=== PATIENT | male | born 1965 | race Caucasian/White ===

== ENCOUNTER 2018-04-15 21:04 | Emergency (ER) | payer BC ==
[2018-04-15 21:44] VITALS: BP 147/82
[2018-04-15] MEDS ORDERED: Lidocaine 1% with EPINEPHrine 1:100,000 20 ML MDV INFILT PRN (21:48)
--- NOTE | 2018-04-21 13:30 | EDM.PDOC ---
ED HPI GENERAL MEDICAL PROBLEM - General Chief Complaint: Laceration Stated Complaint: laceration to left hand Time Seen by Provider: 04/15/18 21:45 Source of Information: Reports: Patient History Limitations: Reports: No Limitations - History of Present Illness INITIAL COMMENTS - FREE TEXT/NARRATIVE: Sustained laceration to dorsum of L hand while skinning a deer. Onset: Today Onset Date: 04/15/18 Location: Reports: Upper Extremity, Left Left Hand Pain Score (Numeric/FACES): 5 - Related Data Allergies Allergy/AdvReac Type Severity Reaction Status Date / Time No Known Allergies Allergy Verified 04/15/18 21:44 Home Meds: Home Meds metFORMIN HCl [Metformin HCl] 1 tab PO DAILY 04/15/18 [History] Past Medical History HEENT History: Reports: None Cardiovascular History: Reports: None Respiratory History: Reports: None Other Respiratory History: Pleurisy Gastrointestinal History: Reports: None Other Gastrointestinal History: Intestinal malabsorption Genitourinary History: Reports: None [employer]PUT[employer] INVESTIGATOR History: Reports: None Musculoskeletal History: Reports: None Other Musculoskeletal History: Tib/Fib FX 1993 Neurological History: Reports: None Psychiatric History: Reports: None Endocrine/Metabolic History: Reports: Diabetes, Type II Hematologic History: Reports: None Immunologic History: Reports: None Oncologic (Cancer) History: Reports: None Dermatologic History: Reports: None - Past Surgical History Cardiovascular Surgical History: Reports: None Respiratory Surgical History: Reports: None GI Surgical History: Reports: Appendectomy Neurological Surgical History: Reports: None Musculoskeletal Surgical History: Reports: ORIF Social & Family History - Tobacco Use Smoking Status *Q: Never Smoker ED ROS GENERAL - Review of Systems Review Of Systems: See Below Constitutional: Reports: No Symptoms Musculoskeletal: Reports: Hand Pain Neurological: Reports: No Symptoms ED EXAM, GENERAL - Physical Exam Exam: See Below Exam Limited By: No Limitations General Appearance: Alert, WD/WN, No Apparent Distress Extremities: Other (approx. 5cm laceration noted to L hand. Superficial with no injury to underlying structures.) ED GENERAL MEDICAL PROCEDURES - Laceration/Wound Repair Hand Lac/wound length in cm: 5 Appearance: Superficial, Mildly Contaminated Distal NVT: Neuro & Vascular Intact, No Tendon Injury Anesthetic Type: Local Local Anesthesia - Lidocaine (Xylocaine): 1% Plain Local Anesthetic Volume: 4cc Skin Prep: Chlorhexidine (Hibiciens), Saline, Sterile Drape Exploration/Debridement/Repair: Wound Explored, Minimal Debridement Closed with: Sutures Suture Size: 4-0 # of Sutures: 5 Suture Type: Nylon Course - Vital Signs Last Recorded V/S: Last Vital Signs Temp 36.6 C 04/15/18 21:40 Pulse 84 04/15/18 21:40 Resp 16 04/15/18 21:40 BP 147/82 H 04/15/18 21:40 Pulse Ox 91 L 04/15/18 21:40 - Orders/Labs/Meds Meds: Medications Discontinued Medications Generic Name Dose Route Start Last Admin Trade Name Freq PRN Reason Stop Dose Admin Lidocaine/Epinephrine 20 ml 04/15/18 21:48 04/15/18 22:20 Xylocaine 1% With Epinephrine 1:100,000 INFILT 20 ml ONETIME PRN Administration Bleeding Departure - Departure Time of Disposition: 23:00 Disposition: Home, Self-Care 01 Clinical Impression: Laceration - Discharge Information Instructions: Laceration Care, Adult Referrals: Dank Rodriguez PA-C [Primary Care Provider] - Forms: ED Department Discharge Additional Instructions: Keep dressing on until morning. Sutures out in 12 days. Follow-up in clinic/return to ER if redness, swelling, or discharge from the area. Ibuprofen 600mg every 6 hours. - Assessment/Plan Plan: Keep dressing on until morning. Sutures out in 12 days. Follow-up in clinic/return to ER if redness, swelling, or discharge from the area. Ibuprofen 600mg every 6 hours.
== END 2018-04-15 23:15 | disposition home or self-care (01) ==
LOC: VM.ED 21:04
DX: S61.412A Laceration without foreign body of left hand, initial encounter (principal); E11.9 Type 2 diabetes mellitus without complications; W22.8XXA Striking against or struck by other objects, initial encounter
CPT/HCPCS: 12002; 99283